=== PATIENT | female | born 1995 | race Caucasian/White ===

== ENCOUNTER 2020-07-30 22:23 | Emergency (ER) | payer SELFPAY ==
[~2020-07-30] VITALS: Ht 165.1 cm; Wt 99.0 kg
[2020-07-30] MEDS ORDERED: OXYcodone/APAP 5/325MG TABLET PO ONE (23:00)
[2020-07-30] MEDS ORDERED: OXYcodone/APAP 5/325MG TABLET ONE (23:23)
[2020-07-30 23:44] VITALS: BP 150/98
--- NOTE | 2020-07-30 23:53 | NUR ---
PT PROVIDED BONEWAX. PT MEDICATED PER MAR
== END 2020-07-30 23:56 | disposition home or self-care (01) ==
LOC: ED 23:12
DX: K04.7 Periapical abscess without sinus (principal); K02.9 Dental caries, unspecified; R00.0 Tachycardia, unspecified
CPT/HCPCS: 99283